=== PATIENT | male | born 1990 | race American Indian/Alaskan Native ===

== ENCOUNTER 2021-11-23 22:03 | Emergency (ER) | payer SELFPAY ==
[2021-11-23 22:10] VITALS: BP 132/88
--- NOTE | 2021-11-24 08:24 | Emergency Department Report ---
ED General Adult HPI - General Chief complaint: Chest Pain Stated complaint: CP X 1 TO 2 WKS Time Seen by Provider: 11/24/21 06:51 Source: patient Mode of arrival: Ambulatory Limitations: No Limitations - History of Present Illness -: Gradual - Related Data Allergies Allergy/AdvReac Type Severity Reaction Status Date / Time No Known Allergies Allergy Unverified 11/23/21 22:09 ED Review of Systems ROS: Stated complaint: CP X 1 TO 2 WKS Other details as noted in HPI ED Past Medical Hx - Past Medical History Previous Medical History?: No ED Physical Exam - General Limitations: No Limitations ED Course Vital Signs 11/23/21 22:09 Temperature 98.7 F Pulse Rate 76 Respiratory 18 Rate Blood Pressure 132/88 O2 Sat by Pulse 95 Oximetry Critical care attestation.: If time is entered above; I have spent that time in minutes in the direct care of this critically ill patient, excluding procedure time. ED Disposition Condition: Stable
--- NOTE | 2021-11-24 21:36 | Electrocardiograph Report ---
[facility] Test Date: 2021-11-23 Test Time: 22:13:03 Pat Name: FREDERICK GRAHAM Department: Room: Gender: M Medical Office Secretary: SHELL : 1990 Requested By: ED DOC Order Number: [id number] Reading MD: Lalo Arora Measurements Intervals [place] Rate: 68 P: 74 [place]: 191 QRS: 62 QRSD: 58 T: 55 QT: 374 QTc: 400 Interpretive Statements Sinus rhythm Probable left atrial enlargement No previous ECG available for comparison Electronically Signed On 11-24-2021 21:36:03 EDT by Lalo Arora
== END 2021-11-24 07:00 | disposition left against medical advice (07) ==
LOC: ED 22:03
DX: R07.9 Chest pain, unspecified (principal)
CPT/HCPCS: 93005; 99281